=== PATIENT | male | born 1985 | race African-American/Black ===

== ENCOUNTER 2019-01-13 12:31 | Emergency (ER) | payer BC ==
[2019-01-13] MEDS ORDERED: CEPHALEXIN 500 MG CAPSULE PO ONE (13:27)
[2019-01-13] MEDS ORDERED: HYDROCODONE/ACETAMINOPHEN 5-325 MG TABLET PO ONE (13:27)
--- NOTE | 2019-01-13 13:30 | ER Document Report ---
HPI - HPI Patient complains to provider of: Finger pain Time Seen by Provider: 01/13/19 12:54 Onset: Other - 3 days Onset/Duration: Worse Quality of pain: Achy Pain Level: 4 Context: Patient complains of right fifth finger tenderness and swelling over the past 3 days. Patient denies any injury or fever. Associated Symptoms: denies: Fever Exacerbated by: Movement Relieved by: Denies Similar symptoms previously: No Recently seen / treated by doctor: No - ROS ROS below otherwise negative: Yes Systems Reviewed and Negative: Yes All other systems reviewed and negative - CONSTITUTIONAL Constitutional: DENIES: Fever, Chills - MUSCULOSKELETAL Musculoskeletal: REPORTS: Extremity pain, Swelling Past Medical History - General Information source: Patient - Social History Smoking Status: Current Every Day Smoker Chew tobacco use (# tins/day): No Smoking Education Provided: Yes Frequency of alcohol use: Rare Drug Abuse: None 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 IN LAST 30 DAYS: No - HEENT HEENT: Atraumatic, Normocephalic - NECK Neck: Normal Inspection - RESPIRATORY Respiratory: No Respiratory Distress - CARDIOVASCULAR Pulses: Normal: Radial - MUSCULOSKELETAL/EXTREMETIES Musculoskeletal/Extremeties: MAEW, FROM, Tender - Right fifth finger tenderness, Edema - NEURO Level of Consciousness: Awake, Alert, Appropriate Motor/Sensory: No Motor Deficit - DERM Integumentary: Warm, Dry Notes: Paronychia to right fifth finger, no swelling to the palmar surface of finger Course - Re-evaluation Re-evalutation: 01/13/19 13:43 Attempted incision and drainage with needle to right fifth finger, no purulent drainage only bloody drainage. Patient with paronychia, no concern for felon or tenosynovitis. Good return precautions discussed with patient. - Vital Signs Vital signs: Temp Pulse Resp BP Pulse Ox 98.4 F 75 18 137/68 H 99 01/13/19 12:37 01/13/19 12:37 01/13/19 12:37 01/13/19 12:37 01/13/19 12:37 Discharge - Discharge Clinical Impression: Paronychia of finger of right hand Condition: Stable Disposition: HOME, SELF-CARE Instructions: Cephalexin ([facility]), Paronychia ([facility]) Additional Instructions: Return immediately for any new or worsening symptoms Followup with your primary care provider, call tomorrow to make a followup appointment Soak finger in warm soapy water at least 3 times a day Prescriptions: Cephalexin Monohydrate [Keflex 500 mg Capsule] 500 mg PO Q6H 5 Days capsule Naproxen [Naprosyn 250 Nmg Tablet] 1 tab PO BID #14 tablet Forms: Smoking Cessation Education, Return to Work Referrals: [facility] [Provider Group] - Follow up as needed
[2019-01-13 13:52] VITALS: BP 130/74
== END 2019-01-13 13:55 | disposition home or self-care (01) ==
LOC: ER 12:31
DX: L03.011 Cellulitis of right finger (principal); M79.644 Pain in right finger(s); F17.200 Nicotine dependence, unspecified, uncomplicated
CPT/HCPCS: 99283

== ENCOUNTER 2019-06-25 22:56 | Emergency (ER) | payer BC ==
--- NOTE | 2019-06-26 | RADIOLOGY REPORT (SQ) ---
EXAM DESCRIPTION: XR HAND 3 OR MORE VIEWS COMPLETED DATE/TME: 06/25/2019 00:00 CLINICAL HISTORY: 34 years, Male, bone tenderness COMPARISON: None. NUMBER OF VIEWS: 3 TECHNIQUE: Three views of the LEFT hand were obtained in AP, lateral and oblique projection. LIMITATIONS: None. FINDINGS: Fracture dislocation of the distal metaphysis of the fourth and fifth digit with dorsal apex angulation of the fracture fragments. A smaller separate fracture fragment is identified lateral to the fifth digit measuring 8 mm. There is diffuse soft tissue swelling of the dorsum of the hand. The joint spaces are otherwise preserved. IMPRESSION: Boxer's fractures of the fourth and fifth digit. copyright 2010 [employer]- All Rights Reserved
[2019-06-26] MEDS ORDERED: AMPICILLIN SOD/SULBACTAM 3 GM VIAL IV ONE (03:09)
[2019-06-26] MEDS ORDERED: FENTANYL CITRATE INJ/PF 100 MCG/2 ML AMPUL IV ONE ×2 (03:10→05:32)
--- NOTE | 2019-06-26 03:17 | ER Document Report ---
ED Animal Bite - General Chief Complaint: Dog Bite Stated Complaint: LEFT HAND DEFORMITY Time Seen by Provider: 06/26/19 02:51 Primary Care Provider: NADJA WEBB MD [ACTIVE PROVISIONAL STAFF] - Follow up as needed Notes: 34-year-old male presents the emergency department after being bit by his pit bull earlier this evening. Patient states that he was protecting his brother who the dog attacked and he punched the pit bowl in the face with his left hand and then simultaneously twisted his fist so the "dog would not lock up on me". Patient states that he has significant pain in his left hand and has a puncture wound over the dorsal aspect in between the fourth and fifth fingers of the left hand, patient also has a puncture wound/laceration on the lateral aspect of the base of the thumb. Patient also has a puncture wound on the right forearm. Patient states he is having difficulty moving his fingers secondary to swelling and pain. Patient denies any numbness or tingling to his left hand or right wrist, denies paralysis. Patient does not know when his last tetanus was. TRAVEL OUTSIDE OF THE [place] IN LAST 30 DAYS: No - Related Data Allergies/Adverse Reactions: No Known Allergies Allergy (Verified 01/13/19 13:07) Past Medical History - Social History Smoking Status: Unknown if Ever Smoked Family History: Reviewed & Not Pertinent Patient has suicidal ideation: No Patient has homicidal ideation: No Renal/ Medical History: Denies: Hx Peritoneal Dialysis Review of Systems - Review of Systems Constitutional: See HPI EENT: No symptoms reported Cardiovascular: No symptoms reported Respiratory: No symptoms reported Gastrointestinal: No symptoms reported Genitourinary: No symptoms reported Male Genitourinary: No symptoms reported Musculoskeletal: See HPI Skin: See HPI Hematologic/Lymphatic: No symptoms reported Neurological/Psychological: See HPI Physical Exam - Vital signs Vitals: Resp 16 06/26/19 02:42 - Notes Notes: PHYSICAL EXAMINATION: Reviewed vital signs and charting by RN GENERAL: Alert, interacts well. No acute distress. HEAD: Normocephalic, atraumatic. EYES: Pupils equal and round. Extraocular movements intact. ENT: Oral mucosa moist, tongue midline. NECK: Full range of motion. Trachea midline. LUNGS: Clear to auscultation bilaterally, no wheezes, rales, or rhonchi. No respiratory distress. HEART: Regular rate and rhythm. No murmur ABDOMEN: soft, non-tender. No distention. Bowel sounds present EXTREMITIES: Moves all 4 extremities spontaneously. Edema of the dorsal aspect of his left hand over the third fourth and fifth metacarpals. PSYCH: Normal affect, normal mood. SKIN: Warm, dry, normal turgor. Multiple puncture wounds, one over the dorsal aspect of the left hand over the carpals, one in the lateral aspect of the proximal thumb, one on his right arm just proximal to the wrist several small abrasions. Course - Re-evaluation Re-evalutation: 06/26/19 03:17 Patient nontoxic-appearing with a boxer's fracture of the fourth and fifth metacarpals of the left hand with a significant puncture wound overlying it concerning for an open fracture. Plan is to give him Unasyn 3 g IV, pain control, tetanus prophylaxis, and consult orthopedics. 06/26/19 05:11 Patient received Unasyn 3 g IV, received fentanyl and reporting great relief. I spoke with Dr. Webb, orthopedist on-call who recommended just to clean the wound and for the patient to perform copious handwashing and to put him on Augmentin for prophylaxis. I am going to loosely approximate [address] Webb said to have patient call his office this morning for follow-up. 06/26/19 07:59 I copiously irrigated the patient's wounds and I loosely approximated the puncture wound/laceration on the patient's lateral left thumb with 2 sutures, one loosely approximated suture on the dorsal aspect of the patient's left hand, and one loosely approximated suture on the dorsal aspect of the patient's left forearm. All other wounds were not large enough or gaping to approximate. Patient was given a prescription for Augmentin to be taken every 12 hours and he was placed in an ulnar splint in the left arm. Patient was given strict instructions to call Dr. Webb's office when they open this morning. Patient understood all instructions and agrees with the plan. I wrote patient a short prescription for pain medication. He is stable for discharge. - Vital Signs Vital signs: Temp Pulse Resp BP Pulse Ox 97.5 F 71 18 139/75 H 99 06/26/19 07:11 06/26/19 07:11 06/26/19 07:11 06/26/19 07:11 06/26/19 07:11 Procedures - Immobilization Left Wrist Immobilizer type: Ulnar Discharge - Discharge Clinical Impression: Boxers fracture, Dog bite Condition: Good Disposition: HOME, SELF-CARE Additional Instructions: You were seen in the emergency department this morning for dog bites and for a boxer's fracture of your left hand. The larger puncture wounds were loosely approximated with sutures and you were placed in an ulnar splint. It is impo rtant that you call orthopedics today when you get home to arrange follow-up. Also, you have been prescribed antibiotics that you need to take 1 tablet 2 times per day for the next 7 days. Please leave the splint on and only remove it to do frequent, copious handwashing. It is important that you frequently wash her hands and cleanse them thoroughly with soap. If you start to develop high fever, pus coming from any of your wounds, you lose sensation of your left hand, or you have any other concerning symptoms please immediately return to the emergency department for reevaluation. Prescriptions: Oxycodone HCl/Acetaminophen [Percocet 5-325 mg Tablet] 1 tab PO Q6HP PRN #15 tablet PRN Reason: Amox Tr/Potassium Clavulanate [Augmentin 875-125 mg Tablet] 1 tab PO BID #14 tablet Forms: Return to Work Referrals: NADJA WEBB MD [ACTIVE PROVISIONAL STAFF] - Follow up as needed
--- NOTE | 2019-06-26 04:34 | RADIOLOGY REPORT (SQ) ---
EXAM DESCRIPTION: XR WRIST 3 OR MORE VIEWS COMPLETED DATE/TME: 06/26/2019 03:09 CLINICAL HISTORY: 34 years Male, dog bite, please open up to assess proximal COMPARISON: None. Findings: Known soft tissue injury anterior aspect of the visualized distal right forearm and wrist; no radioopaque foreign body. Bones, joints, and soft tissues of the RIGHT XR WRIST 3 OR MORE VIEWS appear otherwise intact. IMPRESSION: Soft tissue injury; else, no acute findings. .
[2019-06-26] MEDS ORDERED: LIDOCAINE 1% INJ-PF (10 MG/ML) 30 ML SDV INJ ONE (05:31)
[2019-06-26 07:13] VITALS: BP 139/75
== END 2019-06-26 07:10 | disposition home or self-care (01) ==
LOC: ER 22:56
DX: S62.305A Unspecified fracture of fourth metacarpal bone, left hand, initial encounter for closed fracture (principal); S62.307A Unspecified fracture of fifth metacarpal bone, left hand, initial encounter for closed fracture; S61.452A Open bite of left hand, initial encounter; S51.831A Puncture wound without foreign body of right forearm, initial encounter; W54.0XXA Bitten by dog, initial encounter
CPT/HCPCS: 29125; 96376; 99283; 96375; 96365; 73130; 73110; 12002; J3010; J0295; J3490

== ENCOUNTER 2019-07-01 05:59 | Day surgery (SDC) | payer BC ==
[~2019-07-01 05:59] MED LIST: CEFAZOLIN SODIUM 2 GM in DEXTROSE 5%-WATER 100 ML IV PRN
[2019-07-01] MEDS ORDERED: HYDROMORPHONE HCL INJ/PF 2 MG/ML AMPULE ONE (06:53)
[2019-07-01] MEDS ORDERED: LIDOCAINE 2% INJ-PF (20 MG/ML) 10 ML AMPUL ONE (06:53)
[2019-07-01] MEDS ORDERED: KETOROLAC TROMETHAMINE 60 MG/2 ML SDV ONE (06:53)
[2019-07-01] MEDS ORDERED: DEXAMETHASONE SOD PHOSPHATE INJ 4 MG/1 ML VIAL ONE (06:54)
[2019-07-01] MEDS ORDERED: PROPOFOL INJ 200 MG/20 ML VIAL IV ONE (06:54)
[2019-07-01] MEDS ORDERED: FENTANYL CITRATE INJ/PF 100 MCG/2 ML AMPUL ONE (06:54)
[2019-07-01] MEDS ORDERED: MIDAZOLAM 2 MG/2 ML INJ ONE (06:54)
[2019-07-01] MEDS ORDERED: ONDANSETRON HCL INJ/PF 4 MG/2 ML SDV ONE (06:54)
[2019-07-01 06:55] LABS: APPEARANCE,URINE CLEAR; BILIRUBIN,URINE NEGATIVE (NEGATIVE); COLOR,URINE YELLOW; GLUCOSE, URINE NEGATIVE (NEGATIVE); KETONES,URINE NEGATIVE (NEGATIVE); LEUKOCYTE ESTERASE,URINE NEGATIVE (NEGATIVE); NITRITE,URINE NEGATIVE (NEGATIVE); PROTEIN,URINE NEGATIVE (NEGATIVE); URINE SPECIFIC GRAVITY 1.028
[2019-07-01 07:16] LABS: HEMATOCRIT 38.6 % (37.9-51.0); HEMOGLOBIN 13.1 g/dL (13.5-17.0); MEAN CORPUSCULAR HEMOGLOBIN 32.5 pg (27.0-33.4); MEAN CORPUSCULAR HGB CONC 33.9 g/dL (32.0-36.0); MEAN CORPUSCULAR VOLUME 96 fl (80-97); PLATELET COUNT 242 10^3/uL (150-450); RED BLOOD COUNT 4.02 10^6/uL (4.35-5.55); RED CELL DISTRIBUTION WIDTH 13.4 % (11.5-14.0); WHITE BLOOD COUNT 5.7 10^3/uL (4.0-10.5)
[2019-07-01] MEDS ORDERED: BUPIVACAINE HCL 0.5 % INJ/PF 30 ML SDV ONE (07:49)
[2019-07-01 07:51] LABS: ANION GAP 8 (5-19); BLOOD UREA NITROGEN 12 mg/dL (7-20); CALCIUM 8.8 mg/dL (8.4-10.2); CARBON DIOXIDE 19 mmol/L (22-30); CHLORIDE 111 mmol/L (98-107); GLUCOSE 100 mg/dL (75-110); POTASSIUM 4.1 mmol/L (3.6-5.0)
[2019-07-01] MEDS ORDERED: MEPERIDINE HCL/PF INJ 25 MG/1 ML DISP.SYRIN IV PRN (08:38)
[2019-07-01] MEDS ORDERED: DIPHENHYDRAMINE HCL 50 MG/ML VIAL IV PRN (08:38)
[2019-07-01] MEDS ORDERED: PROMETHAZINE HCL INJ 25 MG/1 ML VIAL IV PRN ×2 (08:38)
[2019-07-01] MEDS ORDERED: FENTANYL CITRATE INJ/PF 100 MCG/2 ML AMPUL IV PRN ×3 (08:38)
--- NOTE | 2019-07-01 10:12 | EKG REPORT ---
SEVERITY:- NORMAL ECG - SINUS RHYTHM : Confirmed by: Laura Zuleta MD 01-Jul-2019 10:11:41
[2019-07-01] MEDS ORDERED: MORPHINE SULFATE 10 MG/ML INJ IV PRN (10:14)
[2019-07-01] MEDS ORDERED: OXYCODONE-ACETAMINOPHEN 5-325 MG TABLET PO PRN (10:14)
[2019-07-01] MEDS ORDERED: ONDANSETRON HCL INJ/PF 4 MG/2 ML SDV IV PRN (10:14)
--- NOTE | 2019-07-01 10:14 | Discharge Summary ---
Discharge Summary (SDC) - Discharge Final Diagnosis: Left fourth/fifth metacarpal fracture Date of Surgery: 07/01/19 Discharge Date: 07/01/19 Condition: Good Forms: ASU Anesthesia D/C Instruction, Discharge POC-Surgical Service Treatment or Instructions: Schedule Follow Up w/ Dr. Dipak Enriquez @ [facility] to be seen in 10-14 days or as scheduled [place]: [place]: [place]: Ice and elevate Keep splint clean/dry/intact, do not remove. Change index finger dressing daily If your fingers become numb please unwrap the Dany wrap but leave the splint in place, if the sensation does not return within 30 minutes please return to the emergency department. May begin finger range of motion attempting to make full fist. Please use ibuprofen (Motrin or Advil) 600-800 mg every 8 hours as needed for pain or fever DO NOT TAKE w/ TORADOL may use once TORADOL complete. You may also use acetaminophen (Tylenol) 1000 mg every 4-6 hours as needed for pain or fever. Please be aware that many medications contain acetaminophen, do not exceed a total of 1000 mg of acetaminophen every 6 hours. If ibuprofen and acetaminophen are not sufficient for your pain you may take the Percocet/[place]. Please be aware that the Percocet/[place] does contain Tylenol. Stool softener of choice when on pain medication. USE OF JSIL-PRN-HMJMQSE IBUPROFEN: Ibuprofen (Advil, Nuprin, Medipren, Motrin IB) is a medication for fever and pain control. In addition, it has anti- inflammatory effects which may be beneficial, especially in the treatment of injuries. It's best to take ibuprofen with food. Persons with ulcer disease or allergy to aspirin should notify their physician of this before taking ibuprofen. Ibuprofen can be given every four to six hours, for a total of four doses daily. Age Pain or fever dose Antiinflammatory dose 6-8 yr 200 mg (1 tab) 200 mg (1 tab) 9-11 yr 200 mg (1 tab) 200-400 mg (1-2 tab) 11-14 yr 200-400 mg (1-2 tab) 400 mg (2 tab) 15-adult 400 mg (2 tab) 600 mg (3 tab) ORAL NARCOTIC MEDICATION: You have been given a prescription for pain control. This medication is a narcotic. It's best taken with food, as nausea can result if taken on an empty stomach. Don't operate machinery or drive within six hours of taking this medication. Do not combine this medicine with alcohol, or with any medication which can cause sedation (such as cold tablets or sleeping pills) unless you get permission from the physician. Narcotics tend to cause constipation. If possible, drink plenty of fluids and eat a diet high in fiber and fruits. Please be aware that prescription narcotics also have the potential for abuse. People become addicted to these medications because of the general sense of wellbeing that they induce. This feeling along with a significant reduction in tension, anxiety, and aggression provides a stimulating seductive quality to these drugs. Once your pain is under control, we encourage you to discard your unused narcotics. Prescriptions: Oxycodone HCl/Acetaminophen [Percocet 5-325 mg Tablet] 1 tab PO Q6HP PRN #25 tablet PRN Reason: Amox Tr/Potassium Clavulanate [Augmentin 875-125 mg Tablet] 1 tab PO BID #14 tablet Referrals: DIPAK ENRIQUEZ DO [ACTIVE STAFF] - Discharge Diet: As Tolerated Respiratory Treatments at Home: Deep Breathing/Coughing Discharge Activity: No Lifting Over 10 Pounds, No Lifting/Push/Pulling Report the Following to Your Physician Immediately: Fever over 101 Degrees, Unusual Bleeding, Redness, Swelling, Warmth, Increased Soreness
--- NOTE | 2019-07-01 10:14 | Operative Report ---
Operative Report DATE OF SURGERY: 07/01/19 PREOPERATIVE DIAGNOSIS: Left fourth/fifth metacarpal neck fracture POSTOPERATIVE DIAGNOSIS: Same OPERATION: 1. Open reduction internal fixation left fourth/fifth metacarpal neck fracture. 2. Irrigation and closure left index finger superficial wound 1 cm x 1 cm SURGEON: ROE ENRIQUEZ ANESTHESIA: GA COMPLICATIONS: None ESTIMATED BLOOD LOSS: Minimal PROCEDURE: Indication for above procedure: 34-year-old male who sustained a dog bite injury to his left hand resulting in fracture of the fourth and fifth metacarpal and laceration. Patient underwent aggressive irrigation in the emergency room and was started on antibiotics. Upon follow-up with me we discussed findings on radiographs and treatment options. Given the amount of displacement angulation decision was made to proceed with operative intervention. Risks and benefits were explained patient verbalized understanding consented for surgical procedure. Procedure In Detail: Patient was seen and evaluated in the preoperative holding area. The upper extremity was initialized and marked. Patient received 2g of Ancef IV for bacterial prophylaxis. Patient was taken back to the operative room where transferred to the operative table and placed under general anesthesia. Once they were adequately anesthetized a nonsterile tourniquet was placed on the upper extremity. A surgical team debriefing was performed ensuring all instrumentation was available, the surgical procedure was discussed with possible concerns reviewed. The upper extremity was prepped with chlorhexidine and alcohol and draped in a sterile fashion. A timeout was done identifying correct patient, procedure and extremity everyone in attendance agree with this and verbalized no concerns. The extremity was exsanguinated the tourniquet was inflated to 250 mmHg. C-arm fluoroscopy was obtained prior to surgical incisions closed reduction was attempted but unsuccessful. Thus longitudinal skin incision was made over the fourth metacarpal neck. Blunt dissection was performed. Extensor mechanism was identified and retracted to expose the underlying fracture. Fracture was copiously irrigated with normal saline. Under direct visualization the fracture was reduced. A 0.045 K wire was placed through the metacarpal recess into the proximal shaft both radially and ulnarly obtaining adequate fixation. C-arm fluoroscopy was obtained confirming bahai of metacarpal height with minimal displacement angulation. Through the 1 cm wound along the dorsum of the fifth metacarpal neck the fracture was identified and copiously irrigated with normal saline. Fracture was then reduced under direct visualization. Given the location of the K wires of the fourth metacarpal and distal nature of the fracture decision was made to proceed with bouquet fixation technique. A 3.5 mm drill bit was placed along the fifth metacarpal base confirmed on C-arm fluoroscopy. A 0.045 K wire was bent and advanced up the metacarpal shaft and fracture reduced through the wound dorsally and K wire placed into the metacarpal head obtaining fixation. An additional 0.045 K wire was placed once again from proximal to distal obtaining fixation to the metacarpal head. Then a third and final 0.045 K wire was advanced to the metacarpal head to provide additional fixation. There was no evidence of fracture instability with manipulation of the digits. Wound was copiously irrigated with normal saline. C-arm fluoroscopy was obtained demonstrating bahai of fourth and fifth metacarpal fracture alignment. A peripheral vascular was coagulated with bipolar cautery. K wires of the fifth metacarpal were bent and closed underneath the skin closure. K wires of the fourth metacarpal were bent and left outside the skin. Wounds were copiously irrigated with normal saline. Interossei was closed with interrupted 3-0 Vicryl suture. Skin was closed with running horizontal mattress 4-0 nylon and interrupted 4-0 nylon. In the traumatic wound 2 sutures were placed but portion of it left open to allow drainage. Laceration of 1 cm x 1 cm along the proximal phalanx of the index finger was opened and copiously irrigated with normal saline. Neurovascular bundle remained intact and no evidence of flexor involvement. Any nonviable tissue was excised. Laceration was loosely reapproximated with 4-0 nylon suture with portion left open to allow drainage. 30 cc of 0.5% bupivacaine without epinephrine was injected for postoperative pain control. Wound was dressed Xeroform 4 x 4's and patient was placed in a ulnar gutter splint leaving the PIP joints free to allow range of motion. Tourniquet was deflated. Patient had good peripheral effusion. Sponge counts, instrument counts, needle counts were correct. Patient was then awoken from anesthesia. Transferred from the operating room table to the operating room stretcher. There was no intraoperative complications patient tolerated procedure well stable to PACU. Postop plan: Patient will follow-up the office in 2 weeks at which point we will obtain radiographs. We will begin occupational therapy focusing on gentle PIP and MP joint range of motion and fit for a thermoplastic splint.
[2019-07-01] MEDS: HYDROMORPHONE HCL INJ/PF 2 MG/ML AMPULE ONE ×2 (10:20→10:25)
[2019-07-01] MEDS ORDERED: OXYCODONE-ACETAMINOPHEN 5-325 MG TABLET ONE (10:27)
[2019-07-01 13:25] VITALS: BP 144/79
--- NOTE | 2019-07-01 14:02 | RADIOLOGY REPORT (SQ) ---
EXAM DESCRIPTION: HAND LEFT 3 VIEWS; NO CHG FLUORO COMPLETED DATE/TIME: 07/01/2019 1:53 pm REASON FOR STUDY: PERC PINNING LEFT 4TH AND 5TH METACARPALS ASST WITH FLUORO IN OR S62.305A UNSP F RACTURE OF FOURTH METACARPAL BONE, LEFT HAND, S62.307A UNSP FRACTURE OF FIFTH METACARPAL BONE, LEFT HAND, S61.452A OPEN BITE OF LEFT HAND, INITIAL ENCOUNTER COMPARISON: 06/25/2019 FLUOROSCOPY TIME: 1 minutes 41 seconds Spot images saved to PACS. TECHNIQUE: Intra-operative images acquired during surgical procedure to evaluate progress. NUMBER OF IMAGES: 5 LIMITATIONS: None. FINDINGS: Fluoroscopy was provided for intraoperative procedure. Please refer to the operative repo rt further discussion. IMPRESSION: IMAGE(S) OBTAINED DURING PROCEDURE. COMMENT: Quality ID [id number]: Final reports for procedures using fluoroscopy that document radiation exp osure indices, or exposure time and number of fluorographic images (if radiation exposure indices are not available) Please consult full operative report of the attending physician for description of the procedure. TECHNICAL DOCUMENTATION: JOB ID: [id number] [employer]- All Rights Reserved Reading location - IP/workstation name: [email or web address]
--- NOTE | 2019-07-01 14:02 | RADIOLOGY REPORT (SQ) ---
EXAM DESCRIPTION: HAND LEFT 3 VIEWS; NO CHG FLUORO COMPLETED DATE/TIME: 07/01/2019 1:53 pm REASON FOR STUDY: PERC PINNING LEFT 4TH AND 5TH METACARPALS ASST WITH FLUORO IN OR S62.305A UNSP F RACTURE OF FOURTH METACARPAL BONE, LEFT HAND, S62.307A UNSP FRACTURE OF FIFTH METACARPAL BONE, LEFT HAND, S61.452A OPEN BITE OF LEFT HAND, INITIAL ENCOUNTER COMPARISON: 06/25/2019 FLUOROSCOPY TIME: 1 minutes 41 seconds Spot images saved to PACS. TECHNIQUE: Intra-operative images acquired during surgical procedure to evaluate progress. NUMBER OF IMAGES: 5 LIMITATIONS: None. FINDINGS: Fluoroscopy was provided for intraoperative procedure. Please refer to the operative repo rt further discussion. IMPRESSION: IMAGE(S) OBTAINED DURING PROCEDURE. COMMENT: Quality ID [id number]: Final reports for procedures using fluoroscopy that document radiation exp osure indices, or exposure time and number of fluorographic images (if radiation exposure indices are not available) Please consult full operative report of the attending physician for description of the procedure. TECHNICAL DOCUMENTATION: JOB ID: [id number] [employer]- All Rights Reserved Reading location - IP/workstation name: [email or web address]
== END 2019-07-01 12:05 | disposition home or self-care (01) ==
LOC: OROUT 05:59
PROVIDERS: ATTEND Orthopaedic Surgery
DX: S62.305A Unspecified fracture of fourth metacarpal bone, left hand, initial encounter for closed fracture (principal); S62.307A Unspecified fracture of fifth metacarpal bone, left hand, initial encounter for closed fracture; S61.211A Laceration without foreign body of left index finger without damage to nail, initial encounter; W54.0XXA Bitten by dog, initial encounter; F17.210 Nicotine dependence, cigarettes, uncomplicated
CPT/HCPCS: 36415; 85027; 80048; 81001; 73130; 93005; 93010; 01830; 26615 ×2; 12001; J2250; J3490 ×2; J0690; J1100; J1885; J3010; J1170; J2405; J7060; J2704; C1713

== ENCOUNTER 2019-11-19 15:16 | Emergency (ER) | payer BC ==
[2019-11-19 16:04] VITALS: BP 138/82
--- NOTE | 2019-11-19 17:04 | ER Document Report ---
HPI - HPI Patient complains to provider of: paronychia Time Seen by Provider: 11/19/19 16:55 Onset: Other Onset/Duration: Persistent Severity: Severe Pain Level: 5 Context: Patient presents emergency department with complaints of swelling to his right middle finger by the nailbed. Reports second paronychia. Reports he was here before to have it drained. Reports ever since he started working at the [employer] he has had problems with his fingers. Denies fever vomiting diarrhea. Does not bite his nails. Associated Symptoms: None Exacerbated by: Movement Relieved by: Denies Similar symptoms previously: Yes Recently seen / treated by doctor: No - REPRODUCTIVE Reproductive: DENIES: : Past Medical History - General Information source: Patient - Social History Smoking Status: Current Every Day Smoker Chew tobacco use (# tins/day): No Frequency of alcohol use: Occasional Drug Abuse: None Occupation: [employer] Lives with: Family Family History: Reviewed & Not Pertinent Patient has suicidal ideation: No Patient has homicidal ideation: No - Past Medical History Cardiac Medical History: Denies: Hx Coronary Artery Disease, Hx Heart Attack, Hx Hypertension Pulmonary Medical History: Denies: Hx Asthma, Hx Bronchitis, Hx COPD, Hx Pneumonia Neurological Medical History: Denies: Hx Cerebrovascular Accident, Hx Seizures Renal/ Medical History: Denies: Hx Peritoneal Dialysis Musculoskeletal Medical History: Denies Hx Arthritis Traumatic Medical History: Reports: Hx Fractures Past Surgical History: Reports: Hx Orthopedic Surgery - Immunizations Hx Diphtheria, Pertussis, Tetanus Vaccination: Yes Vertical Provider Document - CONSTITUTIONAL Agree With Documented VS: Yes Exam Limitations: No Limitations General Appearance: WD/WN, No Apparent Distress - INFECTION CONTROL TRAVEL OUTSIDE OF THE [place] IN LAST 30 DAYS: No - HEENT HEENT: Atraumatic, Normocephalic - NECK Neck: Supple - RESPIRATORY Respiratory: No Respiratory Distress - CARDIOVASCULAR Cardiovascular: Regular Rate - MUSCULOSKELETAL/EXTREMETIES Musculoskeletal/Extremeties: MAEW, FROM, Tender - right middle finger with paronychia to anterior and lateral around nailbed. +erythema, swelling - NEURO Level of Consciousness: Awake, Alert, Appropriate - DERM Integumentary: Warm, Dry, Abscess - Paronychia Course - Re-evaluation Re-evalutation: 11/19/19 19:00 patient with paronychia. I& D completed. pt tolerated procedure well. He was instructed on warm soaks. Instructed to take medication as prescribed return for worsening symptoms or concerns. Hand X-Ray 11/19/19 16:59 IMPRESSION: Soft tissue swelling with no osseous abnormality. - Vital Signs Vital signs: Temp Pulse Resp BP Pulse Ox 97.5 F 80 15 138/82 H 100 11/19/19 16:02 11/19/19 16:02 11/19/19 16:02 11/19/19 16:02 11/19/19 16:02 - Diagnostic Test Radiology reviewed: Reports reviewed Procedures - Incision and Drainage Right 3rd digit Type: Simple Anesthetic type: 1% Lidocaine mL's of anesthetic: 1 Blade size: 11 Incision Method: Incision made by scalpel Amount/type of drainage: large amount purulent drainage Hands back picture: 1 - Incision made large amount of drainage obtained wound culture sent patient tolerated procedure well Discharge - Discharge Clinical Impression: Paronychia of finger of right hand Condition: Stable Disposition: HOME, SELF-CARE Instructions: Cephalexin ([facility]), Paronychia ([facility]) Additional Instructions: *You have been treated for a paronychia to your right middle finger *Take medication as prescribed *Monitor your finger for signs of infection such as increasing pain, redness, swelling, warmth *Keep your finger clean, use gloves when doing work with water. *warm soaks as discussed *Follow up with a primary care provider in 1 week for recheck *Return to ED for signs of increasing infection, worsening condition, changes, needs Monitor your blood pressure. Your blood pressure was elevated today. This may be because you were anxious, in pain or because you need medication. It is important to follow up with your primary care provider for full evaluation. Prescriptions: Cephalexin Monohydrate [Keflex 500 mg Capsule] 500 mg PO QID #20 capsule Forms: Elevated Blood Pressure, Return to Work
--- NOTE | 2019-11-19 17:50 | RADIOLOGY REPORT (SQ) ---
EXAM DESCRIPTION: HAND RIGHT 3 VIEWS COMPLETED DATE/TIME: 11/19/2019 5:31 pm REASON FOR STUDY: pain swelling right middle finger COMPARISON: None. EXAM PARAMETERS: NUMBER OF VIEWS: Three views. TECHNIQUE: AP, lateral and oblique radiographic images acquired of the right hand. LIMITATIONS: None. FINDINGS: MINERALIZATION: Normal. BONES: No acute fracture or dislocation. No worrisome bone lesions. JOINTS: No effusions. SOFT TISSUES: Soft tissue swelling the distal aspect of the 3rd digit. OTHER: No other significant finding. IMPRESSION: Soft tissue swelling with no osseous abnormality. TECHNICAL DOCUMENTATION: JOB ID: [id number] [employer]- All Rights Reserved Reading location - IP/workstation name: [email or web address]
[2019-11-19] MEDS ORDERED: OXYCODONE-ACETAMINOPHEN 5-325 MG TABLET PO ONE (18:13)
[2019-11-19] MEDS ORDERED: CEPHALEXIN 500 MG CAPSULE PO ONE (18:13)
== END 2019-11-19 18:40 | disposition home or self-care (01) ==
LOC: ER 15:16
PROC: 0H9QXZZ Drainage of Finger Nail, External Approach (ICD-10-PCS; principal; 2019-11-19)
DX: L03.011 Cellulitis of right finger (principal); M79.89 Other specified soft tissue disorders; F17.200 Nicotine dependence, unspecified, uncomplicated
CPT/HCPCS: 87070; 87075; 87205; 99283